=== PATIENT | male | born 1990 | race Asian ===

== ENCOUNTER 2021-06-27 16:53 | Emergency (ER) | payer OTHER ==
[2021-06-27] MEDS ORDERED: BUTALB/ACETAM/CAFF 50/325/40MG TABLET PO STA (17:40)
[2021-06-27] MEDS ORDERED: ONDANSETRON ODT 4 MG TABLET TL STA (17:40)
[2021-06-27 17:58] VITALS: BP 128/60
--- NOTE | 2021-06-27 18:16 | ED Physician Documentation ---
History of Present Illness - Stated complaint Stated Complaint: HEADACHE/VOMIT BLOOD - Chief complaint Chief Complaint: Heent - History obtained from History obtained from: Patient - History of Present Illness Timing: Today Pain level max: 7 Pain level now: 6 - Additonal information Additional information: Patient is a 31-year-old male who presents to the emergency department with a headache today. He states that he has headaches like this 2-3 times per month. Emesis x2. Small amount of blood in the last emesis. He is not on any medications at home. Does not drink alcohol. Worse with light and sound. No fevers. No trauma. No abdominal pain. No diarrhea or constipation Review of Systems Ten Systems: 10 systems reviewed and negative Constitutional: denies: Fever, Chills Eyes: reports: Photophobia. denies: Decreased vision Ears: denies: Ear pain Nose: denies: Rhinorrhea / runny nose, Congestion, Sinus pressure / pain Throat: denies: Sore throat Cardiac: denies: Chest pain / pressure Respiratory: denies: Dyspnea, Cough GI: reports: Vomiting, Hematemesis (small amount of blood in last bout of emesis. states small streak). denies: Abdominal Pain, Nausea, Diarrhea Skin: denies: Rash Musculoskeletal: denies: Neck pain, Back pain Neurologic: denies: Focal weakness, Numbness, Confused, Head injury, LOC PD PAST MEDICAL HISTORY - Past Medical History Past Medical History: Yes Neuro: Headaches - Past Surgical History Past Surgical History: No - Present Medications Home Medications: Ambulatory Orders Medication Instructions Recorded Confirmed No Known Home Medications 06/27/21 06/27/21 - Allergies Allergies/Adverse Reactions: Allergies Allergy/AdvReac Type Severity Reaction Status Date / Time No Known Drug Allergies Allergy Verified 06/27/21 17:03 - Living Situation Living Situation: reports: With family Living Arrangement: reports: At home - Social History Does the pt smoke?: No Does the pt drink ETOH?: No Does the pt have substance abuse?: No PD ED PE NORMAL - Vitals Vital signs reviewed: Yes - General General: Alert and oriented X 3, No acute distress, Well developed/nourished - HEENT HEENT: Atraumatic, PERRL, EOMI, Ears normal, Moist mucous membranes, Pharynx benign - Neck Neck: Supple, no meningeal sign, No bony TTP - Cardiac Cardiac: RRR, Strong equal pulses - Respiratory Respiratory: No respiratory distress, Clear bilaterally - Abdomen Abdomen: Normal bowel sounds, Soft, Non tender, Non distended - Back Back: No CVA TTP, No spinal TTP - Derm Derm: Warm and dry, No rash - Extremities Extremities: No edema - Neuro Neuro: Alert and oriented X 3, 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 Was given Zofran and Fioricet. Headache resolved. Tolerating p.o. without difficulty. He states that he had a very small amount of reddish streaks in his last bout of emesis. Possible small tears from repeated retching. No indication for laboratory testing at this time. No further emesis. Patient will monitor at home and return if he worsens. Patient counseled regarding signs and symptoms for which I believe and urgent re-evaluation would be necessary. Patient with good understanding of and agreement to plan and is comfortable going home at this time This document was made in part using voice recognition software. While efforts are made to proofread this document, sound alike and grammatical errors may occur. Departure - Departure Disposition: 01 Home, Self Care Clinical Impression: Migraine headache Qualifiers: Migraine type: unspecified Status migrainosus presence: without status migrainosus Intractability: not intractable Qualified Code(s): G43.909 - Migraine, unspecified, not intractable, without status migrainosus Condition: Good Instructions: ED Headache Migraine Follow-Up: Your,doctor in 1 week [Other] Comments: Please follow-up with your command for further care. Return if you worsen. Do not drive or operate heavy machinery tonight. Discharge Date/Time: 06/27/21 18:19
== END 2021-06-27 18:19 | disposition home or self-care (01) ==
LOC: ED 16:53
DX: G43.909 Migraine, unspecified, not intractable, without status migrainosus (principal)
CPT/HCPCS: 99282; A9270; Q0162

== ENCOUNTER 2023-03-18 08:43 | Emergency (ER) | payer OTHER ==
[2023-03-18] MEDS ORDERED: ONDANSETRON 4 MG/2 ML VIAL IVP STA (09:17)
[2023-03-18] MEDS ORDERED: SODIUM CHLORIDE 0.9% 1,000 ML IV STA (09:17)
[2023-03-18 09:18] LABS: BASOPHILS % (AUTO) 0.3 %; EOSINOPHILS # (AUTO) 0.1 10^3/uL (0.0-0.7); EOSINOPHILS % (AUTO) 0.8 %; HCT - HEMATOCRIT 49.4 % (42.0-52.0); HGB - HEMOGLOBIN 16.2 g/dL (14.0-18.0); LYMPHOCYTES # (AUTO) 0.6 10^3/uL (1.5-3.5); LYMPHOCYTES % (AUTO) 7.7 %; MEAN CORPUSCULAR HEMOGLOBIN 27.8 pg (27.0-31.0); MEAN CORPUSCULAR HGB CONC 32.8 g/dL (32.0-36.0); MEAN CORPUSCULAR VOLUME 84.7 fL (80.0-94.0); MEAN PLATELET VOLUME 10.1 fL (7.4-11.4); MONOCYTES # (AUTO) 0.5 10^3/uL (0.0-1.0); NEUTROPHILS # (AUTO) 6.4 10^3/uL (1.5-6.6); NEUTROPHILS % (AUTO) 85.1 %; PLT - PLATELET COUNT 210 10^3/uL (130-450); RED BLOOD COUNT 5.83 10^6/uL (4.70-6.10); RED CELL DISTRIBUTION WIDTH 13.5 % (12.0-15.0); WHITE BLOOD COUNT 7.5 x10^3/uL (4.8-10.8)
[2023-03-18 09:32] LABS: ALBUMIN 4.7 g/dL (3.2-5.5); ALBUMIN/GLOBULIN RATIO 1.5 (1.0-2.2); BILIRUBIN,TOTAL 0.8 mg/dL (0.2-1.0); CALCIUM 9.6 mg/dL (8.5-10.3); CREATININE 1.1 mg/dL (0.6-1.3); TOTAL PROTEIN 7.9 g/dL (6.4-8.9)
--- NOTE | 2023-03-18 09:46 | ED Physician Documentation ---
PD HPI NVD - Stated complaint Stated Complaint: N/V/D DIZZY - Chief complaint Chief Complaint: Abd Pain - History obtained from History obtained from: Patient - Additonal information Additional information: Patient is a 33-year-old male with no significant prior medical history presenting for evaluation of nausea, vomiting and diarrhea starting last night. Patient states he has had 5 episodes of diarrhea and more than 5 episodes of emesis. Denies blood in emesis or stools. Reports he had steak yesterday but denies that anyone else in his household is sick and did not eat out. No recent travel or antibiotics. Initially was unable to keep water down this morning but was just prior to arrival. No history of any prior abdominal surgeries. Does not take any regular medications. Review of Systems Constitutional: denies: Fever Cardiac: denies: Chest pain / pressure Respiratory: denies: Dyspnea GI: reports: Nausea, Vomiting, Diarrhea. denies: Abdominal Pain, Bloody / black stool : denies: Dysuria PD PAST MEDICAL HISTORY - Past Medical History Past Medical History: Yes Cardiovascular: None Respiratory: None Neuro: Headaches Endocrine/Autoimmune: None GI: None : None HEENT: None Psych: None Musculoskeletal: None Derm: None - Past Surgical History Past Surgical History: No - Present Medications Home Medications: Ambulatory Orders Medication Instructions Recorded Confirmed Ondansetron Odt [Zofran] 4 mg TL Q6H PRN #10 tablet 03/18/23 - Allergies Allergies/Adverse Reactions: Allergies Allergy/AdvReac Type Severity Reaction Status Date / Time No Known Drug Allergies Allergy Verified 03/18/23 09:02 - Social History Does the pt smoke?: No Smoking Status: Former smoker Does the pt drink ETOH?: Yes Does the pt have substance abuse?: No - Immunizations Immunizations are current?: Yes PD ED PE NORMAL - General General: Alert and oriented X 3, No acute distress, Well developed/nourished - HEENT HEENT: Atraumatic, Moist mucous membranes, Pharynx benign - Neck Neck: Supple, no meningeal sign - Cardiac Cardiac: RRR, No murmur - Respiratory Respiratory: No respiratory distress, Clear bilaterally - Abdomen Abdomen: Normal bowel sounds, Soft, Non tender, Non distended - Derm Derm: Warm and dry - Neuro Neuro: Normal speech Results - Vitals Vitals: Vital Signs - 24 hr 03/18/23 03/18/23 09:03 10:16 Temperature 36.8 C Heart Rate 82 66 Respiratory 18 16 Rate Blood Pressure 119/68 126/76 O2 Saturation 97 95 Oxygen O2 Source Room air - Labs Labs: Laboratory Tests 03/18/23 03/18/23 09:13 09:13 WBC 7.5 RBC 5.83 Hgb 16.2 Hct 49.4 MCV 84.7 MCH 27.8 MCHC 32.8 RDW 13.5 Plt Count 210 MPV 10.1 Neut # (Auto) 6.4 Lymph # (Auto) 0.6 L [place] # (Auto) 0.5 Eos # (Auto) 0.1 Baso # (Auto) 0.0 Absolute Nucleated RBC 0.00 Nucleated RBC % 0.0 Sodium 137 Potassium 4.0 Chloride 103 Carbon Dioxide 28 Anion Gap 6.0 BUN 17 Creatinine 1.1 Estimated GFR (MDRD) 78 L Glucose 116 H Calcium 9.6 Total Bilirubin 0.8 AST 24 ALT 37 Alkaline Phosphatase 67 Total Protein 7.9 Albumin 4.7 Globulin 3.2 Albumin/Globulin Ratio 1.5 Lipase 18 PD Medical Decision Making - ED course Complexity details: reviewed results, re-evaluated patient, d/w patient ED course: Patient is a 33-year-old male presenting for evaluation of nausea, vomiting and diarrhea starting last night. Vital signs are stable and abdominal exam is benign. CBC and chemistries were obtained and reviewed and without significant findings. Patient feeling better here after IV fluids and Zofran. No episodes of diarrhea or vomiting here. Patient counseled on continued supportive care as well as concerning symptoms to return for. 1008 - Repeat abdominal exam remains benign Departure - Departure Disposition: 01 Home, Self Care Clinical Impression: Nausea vomiting and diarrhea Condition: Stable Instructions: ED Diet Vomiting Diarrhea Follow-Up: [facility] [Provider Group] Prescriptions: Ondansetron Odt [Zofran] 4 mg TL Q6H PRN #10 tablet PRN Reason: Nausea / Vomiting Comments: I have sent a prescription for an antinausea medication called ondansetron to the [facility] pharmacy in [place]. Please continue with staying hydrated today. I would start with a bland diet and avoid anything heavy/greasy/fried, spicy, citrusy or acidic. Return to the ER with any worsening symptoms such as abdominal pain, continued vomiting. Forms: Activity restrictions Discharge Date/Time: 03/18/23 10:41
[2023-03-18 10:26] VITALS: BP 126/76; O2SAT 95
== END 2023-03-18 10:41 | disposition home or self-care (01) ==
LOC: ED 08:43
DX: R11.2 Nausea with vomiting, unspecified (principal); R19.7 Diarrhea, unspecified; Z87.891 Personal history of nicotine dependence
CPT/HCPCS: 36415; 80053; 83690; 85025; 96361; 96374; 99283